=== PATIENT | male | born 1970 | race Two or more races ===

== ENCOUNTER 2019-09-20 14:17 | Emergency (ER) | payer OTHER ==
[~2019-09-20] VITALS: Ht 180.3 cm; Wt 108.9 kg
[2019-09-20] MEDS ORDERED: METFORMIN HCL500 M3 PO (14:59)
[2019-09-20] MEDS ORDERED: GLIPIZIDE XL5 MG PO (14:59)
== END 2019-09-20 22:57 | disposition home or self-care (01) ==
LOC: ER
DX: K57.32 Diverticulitis of large intestine without perforation or abscess without bleeding (principal)